=== PATIENT | male | born 1985 | race Caucasian/White ===

== ENCOUNTER 2016-04-19 11:40 | Inpatient (IN) | payer OTHER ==
[2016-04-19 14:25] VITALS: BMI 24.2
--- NOTE | 2016-04-19 15:26 | HP ---
Admission [facility] Chief Complaint: I need help to stop drinking alcohol Allergies/Adverse Reactions: Allergies Allergy/AdvReac Type Severity Reaction Status Date / Time Fish Containing Products Allergy Severe Rash Verified 04/19/16 14:30 Penicillins Allergy Severe Rash Verified 04/19/16 14:30 History of Present Illness: 30 y/o m pt with a h/o chronic alcoholism seeking detox. Exam Limitations: No Limitations - Ebola screening Have you traveled outside of the country in the last 21 days: No Have you had contact with anyone from an Ebola affected area: No Have you been sick,other than usual withdrawal symptoms: No Do you have a fever: No - Review of Systems Constitutional: Loss of Appetite, Malaise, Night Sweats, Changes in sleep, Unintentional Wgt. Loss (5 lbs. x 2 weeks) EENT: reports: No Symptoms Reported, Dental Problems (arch bars in mouth 2nd to mandibular fx), Mouth Pain Respiratory: reports: No Symptoms reported Cardiac: reports: No Symptoms Reported GI: reports: Nausea, Indigestion : reports: Frequency Musculoskeletal: reports: Muscle Pain (calves krystle) Integumentary: reports: Other (multiple tatoos / abscess on back) Neuro: reports: Headache Patient History - Patient Medical History Hx Anemia: No Hx Asthma: No Hx Chronic Obstructive Pulmonary Disease (COPD): No Hx Cancer: No Hx Cardiac Disorders: No Hx Congestive Heart Failure: No Hx Hypertension: No Hx Hypercholesterolemia: No Hx Pacemaker: No HX Cerebrovascular Accident: No Hx Seizures: No Hx Diabetes: No Hx Gastrointestinal Disorders: No Hx Liver Disease: No Hx Genitourinary Disorders: No Hx Sexually Transmitted Disorders: No Hx Renal Disease (ESRD): No Hx Thyroid Disease: No Hx Human Immunodeficiency Virus (HIV): No Hx Hepatitis C: No Hx Depression: Yes Hx Suicide Attempt: No Hx Bipolar Disorder: No Hx Schizophrenia: No - Patient Surgical History Past Surgical History: Yes Hx Orthopedic Surgery: Yes (Bilateral mandible fx 08/15) - PPD History Previous Implant?: Yes Documented Results: Negative w/o proof Implanted On Prior R Admission?: No PPD to be Administered?: Yes - Reproductive History Patient is a Female of Child Bearing Age (11 -55 yrs old): No - Smoking Cessation Smoking history: Current every day smoker Have you smoked in the past 12 months: Yes Aproximately how many cigarettes per day: 20 Cigars Per Day: 0 Hx Chewing Tobacco Use: No Initiated information on smoking cessation: Yes 'Breaking Loose' booklet given: 04/19/16 - Substance & Tx. History Hx Alcohol Use: Yes Hx Substance Use: Yes Substance Use Type: Alcohol, Marijuana Hx Substance Use Treatment: Yes - Substances Abused Alcohol Route: Oral Frequency: Daily Amount used: FIFTH OF VODKA Age of first use: 20 Date of Last Use: 04/19/16 Marijuana/Hashish Route: Smoking Frequency: 1-3 times last 30 days Amount used: 1 JOINT Age of first use: 10 Date of Last Use: 04/16/16 Family Disease History - Family Disease History Family Disease History: [place]: Mother (lung ), Brother (pancreatic ) Admission Physical Exam [facility] - Vital Signs Vital Signs: Vital Signs - 24 hr 04/19/16 14:01 Temperature 97.5 F L Pulse Rate 85 Respiratory 18 Rate Blood Pressure 101/65 30 y/o m pt aox3 in nad ambulating , cooperative with exam - Physical General Appearance: Yes: Disheveled, Anxious HEENTM: Yes: EOMI, Hearing grossly Normal, Normal Voice, ANGEL LUIS Respiratory: Yes: Within Normal Limits, Chest Non-Tender, Lungs Clear, Normal Breath Sounds, No Respiratory Distress Neck: Yes: Supple, Trachea in good position Breast: Yes: Within Normal Limits Cardiology: Yes: Regular Rhythm, Regular Rate, S1, S2 Abdominal: Yes: Non Tender, Flat, Soft, Increased Bowel Sounds Genitourinary: Yes: Frequency Back: Yes: Other (abscess on back) Musculoskeletal: Yes: Muscle Pain Extremities: Yes: Tremors 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, Fully Oriented, Alert, Normal Response Integumentary: Yes: Diaphoresis Lymphatic: Yes: Within Normal Limits - Diagnostic (1) Alcohol dependence with uncomplicated withdrawal Current Visit: Yes Status: Chronic (2) Cannabis abuse, uncomplicated Current Visit: Yes Status: Chronic (3) Nicotine dependence Current Visit: Yes Status: Acute Qualifiers: Nicotine product type: cigarettes Substance use status: uncomplicated Qualified Code(s): F17.210 - Nicotine dependence, cigarettes, uncomplicated (4) Abscess of back Current Visit: Yes Status: Acute Cleared for Admission [facility] - Detox or Rehab [facility] Level of Care: Medically Managed Detox Regimen/Protocol: Librium [facility] Breath Alcohol Content Breath Alcohol Content: 0 Urine Drug Screen - Results Urine Drug Screen Results: THC-Marijuana
[2016-04-19] MEDS ORDERED: LOPERAMIDE HCL 2 MG CAPSULE PO PRN (15:41)
[2016-04-19] MEDS ORDERED: NICOTINE POLACRILEX 4 MG GUM BC PRN (15:41)
[2016-04-19] MEDS ORDERED: guaiFENesin/D-METHORPHAN HB 10 ML UNIT-DOSE CUPS PO PRN (15:41)
[2016-04-19] MEDS ORDERED: IBUPROFEN 400 MG TABLET (FP) PO PRN (15:41)
[2016-04-19] MEDS ORDERED: MAGNESIUM HYDROX 2400MG/30ML ORAL SUSPENSION 30 ML CUP PO PRN (15:41)
[2016-04-19] MEDS ORDERED: MAGNESIUM CITRATE 300 ML BOTTLE PO PRN (15:41)
[2016-04-19] MEDS ORDERED: MAG HYDROX/AL HYDROX/SIMETH 30 ML UNIT-DOSE CUP PO PRN (15:41)
[2016-04-19] MEDS ORDERED: MENTHOL/PHENOL 1 EACH UD MM PRN (15:41)
[2016-04-19] MEDS ORDERED: chlordiazePOXIDE HCL 25 MG CAPSULE PO PRN (15:41)
[2016-04-19] MEDS ORDERED: hydrOXYzine PAMOATE 25 MG CAPSULE (FP) PO PRN (15:41)
[2016-04-19] MEDS ORDERED: diphenhydrAMINE HCL 50 MG CAPSULE PO PRN (15:41)
[2016-04-19] MEDS ORDERED: ACETAMINOPHEN 325 MG TABLET (FP) PO PRN (15:41)
[2016-04-19] MEDS ORDERED: P-EPHED 60MG/TRIPROLIDI 2.5MG TABLET PO PRN (15:41)
[2016-04-19] MEDS ORDERED: PATIENT'S OWN MEDICATION (NON-FORMULARY) (Doxycycline Monohydrate [Monodox] 100 MG) PO SCH (16:00)
[2016-04-19] MEDS: chlordiazePOXIDE HCL 25 MG CAPSULE PO SCH ×2 (16:56→22:25)
[2016-04-19] MEDS: PATIENT'S OWN MEDICATION (NON-FORMULARY) (Doxycycline Monohydrate [Monodox] 100 MG) PO SCH ×2 (18:10→18:11)
[2016-04-19 20:23] LABS: URINE APPEARANCE CLEAR; URINE BILIRUBIN NEGATIVE (NEGATIVE); URINE BLOOD NEGATIVE (NEGATIVE); URINE COLOR YELLOW; URINE GLUCOSE (UA) NEGATIVE (NEGATIVE); URINE KETONE TRACE (NEGATIVE); URINE LEUK ESTERASE NEGATIVE (NEGATIVE); URINE NITRITE NEGATIVE (NEGATIVE); URINE PROTEIN NEGATIVE (NEGATIVE); URINE UROBILINOGEN NEGATIVE E.U./dl (0.2-1.0)
[2016-04-19] MEDS: THIAMINE HCL 100 MG TABLET (FP) PO SCH (22:24)
[2016-04-20] MEDS: chlordiazePOXIDE HCL 25 MG CAPSULE PO SCH ×4 (05:51→22:30)
--- NOTE | 2016-04-20 07:43 | CONSULT ---
[facility] Psychiatric Consult - Data Date of interview: 04/20/16 Admission source: [facility] Identifying data: This is 30 years old male with no history of psychiatric hospitalizations intoxicated with Alcxohol, Cannabis and Nicotine Substance Abuse History: Smoking history: Current every day smoker. Have you smoked in the past 12 months: Yes. Aproximately how many cigarettes per day: 20. Cigars Per Day: 0. Hx Chewing Tobacco Use: No. Initiated information on smoking cessation: Yes. 'Breaking Loose' booklet given: 04/19/16. - Substance & Tx. History. Hx Alcohol Use: Yes. Hx Substance Use: Yes. Substance Use Type : Alcohol, Marijuana. Hx Substance Use Treatment: Yes. - Substances Abused. * * Alcohol. Route: Oral. Frequency: Daily. Amount used: FIFTH OF VODKA. Age of first use: 20. Date of Last Use: 04/19/16. Marijuana/Hashish. Route: Smoking. Frequency: 1-3 times last 30 days. Amount used: 1 JOINT. Age of first use: 10. Date of Last Use: 04/16/16 Medical History: Denies Psychiatric History: Denies Physical/Sexual Abuse/Trauma History: Denies Additional Comment: Observation. Detox Care Protocol Mental Status Exam - Mental Status Exam Alert and Oriented to: Person Cognitive Function: Fair Patient Appearance: Unkempt Mood: Sad, Suspicious Affect: Flat Patient Behavior: Sedated Speech Pattern: Delayed Voice Loudness: Mildly Loud, Mildly Soft/Quiet Thought Process: Circumstantial Thought Disorder: Being Controlled Hallucinations: Denies Suicidal Ideation: Denies Homicidal Ideation: Denies Insight/Judgement: Fair Sleep: Difficulty falling asleep Appetite: Fair Muscle strength/Tone: Normal Gait/Station: Shuffling Additional Comments: Observation. Detox Care Protocol Psychiatric Findings - Problem List ([place] 1, 2,3) (1) Nicotine dependence Current Visit: Yes Status: Acute Qualifiers: Nicotine product type: cigarettes Substance use status: uncomplicated Qualified Code(s): F17.210 - Nicotine dependence, cigarettes, uncomplicated (2) Alcohol dependence with uncomplicated withdrawal Current Visit: Yes Status: Chronic (3) Cannabis abuse, uncomplicated Current Visit: Yes Status: Chronic (4) Drug-induced mood disorder Current Visit: Yes Status: Suspected - Initial Treatment Plan Initial Treatment Plan: Observation. Detox Care Protocol
[2016-04-20] MEDS: PATIENT'S OWN MEDICATION (NON-FORMULARY) (Doxycycline Monohydrate [Monodox] 100 MG) PO SCH ×2 (10:03→18:21)
[2016-04-20] MEDS: NICOTINE 21 MG/24 HOURS TOPICAL PATCH TD SCH (10:03)
[2016-04-20] MEDS: PRENATAL VITAMINS W/ FOLIC ACID TABLET (FP) PO SCH (10:03)
--- NOTE | 2016-04-20 10:28 | PN ---
[facility] CIWA - CIWA Score Nausea/Vomitin-No Nausea/No Vomiting Muscle Tremors: 4-Moderate,w/Arms Extend Anxiety: 4-Mod. Anxious/Guarded Agitation: 4-Moderately Restless Paroxysmal Sweats: 1-Minimal Palms Moist Orientation: 0-Oriented Tacttile Disturbances: 3-Moderate Itch/Numb/Burn Auditory Disturbances: 0-None Visual Disturbances: 0-None Headache: 0-None Present CIWA-Ar Total Score: 16 BHS Progress Note (SOAP) Subjective: ANXIETY,SWEATS,TREMORS,INTERMITTENT SLEEP. Objective: 04/20/16 10:27 Vital Signs Temperature 96.8 F L 04/20/16 06:23 Pulse Rate 74 04/20/16 06:23 Respiratory Rate 16 04/20/16 06:23 Blood Pressure 95/70 04/20/16 06:23 O2 Sat by Pulse Oximetry (%) Laboratory Last Values Sodium 140 mmol/L (136-145) 04/20/16 05:45 Potassium 4.0 mmol/L (3.5-5.1) 04/20/16 05:45 Chloride 105 mmol/L (98-107) 04/20/16 05:45 Urine Color Yellow 04/19/16 19:30 Urine Appearance Clear 04/19/16 19:30 Urine pH 6.0 (5.0-8.0) 04/19/16 19:30 Ur Specific [place] 1.023 (1.001-1.035) 04/19/16 19:30 Urine Protein Negative (NEGATIVE) 04/19/16 19:30 Urine Glucose (UA) Negative (NEGATIVE) 04/19/16 19:30 Urine Ketones Trace (NEGATIVE) H 04/19/16 19:30 Urine Blood Negative (NEGATIVE) 04/19/16 19:30 Urine Nitrite Negative (NEGATIVE) 04/19/16 19:30 Urine Bilirubin Negative (NEGATIVE) 04/19/16 19:30 Urine Urobilinogen Negative E.U./dl (0.2-1.0) 04/19/16 19:30 Ur Leukocyte Esterase Negative (NEGATIVE) 04/19/16 19:30 Assessment: 04/20/16 10:28 WITHDRAWAL SX Plan: CONTINUE DETOX
[2016-04-20 10:33] LABS: MCHC 34.5 g/dl (32.0-35.9); MEAN CELL VOLUME 95.7 fl (80-96); MEAN PLT VOLUME 8.8 fl (7.5-11.1); PLATELET COUNT 185 K/MM3 (134-434); RDW 12.3 % (11.9-15.9)
[2016-04-20 10:38] LABS: ALBUMIN 4.5 g/dl (3.4-5.0); ALK PHOS 121 U/L (45-117); ANION GAP 5 (8-16); BILIRUBIN,TOTAL 0.5 mg/dL (0.2-1.0); CALCIUM 9.3 mg/dL (8.5-10.1); CO2 30 mmol/L (21-32); CREATININE 0.9 mg/dL (0.7-1.3); GLUCOSE,RANDOM 73 mg/dL (74-106); SGOT/AST 50 U/L (15-37); SGPT/ALT 76 U/L (12-78); TOT PROT 7.2 g/dl (6.4-8.2)
--- NOTE | 2016-04-20 16:54 | EKG ---
Test Reason : Blood Pressure : / mmHG Vent. Rate : 068 BPM Atrial Rate : 068 BPM P-R Int : 138 ms QRS Dur : 082 ms QT Int : 370 ms P-R-T Axes : 067 081 025 degrees QTc Int : 393 ms POOR DATA QUALITY, INTERPRETATION MAY BE ADVERSELY AFFECTED NORMAL SINUS RHYTHM NORMAL ECG NO PREVIOUS ECGS AVAILABLE Confirmed by GEORGE SHEFFIELD MD ([id number]) on 04/20/2016 4:54:27 PM Referred By: Confirmed By:GEORGE SHEFFIELD MD
[2016-04-20] MEDS: THIAMINE HCL 100 MG TABLET (FP) PO SCH (22:30)
[2016-04-21] MEDS: chlordiazePOXIDE HCL 25 MG CAPSULE PO SCH ×2 (05:49→10:18)
[2016-04-21] MEDS: PRENATAL VITAMINS W/ FOLIC ACID TABLET (FP) PO SCH (10:17)
[2016-04-21] MEDS: PATIENT'S OWN MEDICATION (NON-FORMULARY) (Doxycycline Monohydrate [Monodox] 100 MG) PO SCH ×2 (10:18→17:19)
[2016-04-21] MEDS: NICOTINE 21 MG/24 HOURS TOPICAL PATCH TD SCH (10:18)
--- NOTE | 2016-04-21 10:53 | PN ---
[facility] CIWA - CIWA Score Nausea/Vomitin-No Nausea/No Vomiting Muscle Tremors: 4-Moderate,w/Arms Extend Anxiety: 4-Mod. Anxious/Guarded Agitation: 4-Moderately Restless Paroxysmal Sweats: 1-Minimal Palms Moist Orientation: 0-Oriented Tacttile Disturbances: 3-Moderate Itch/Numb/Burn Auditory Disturbances: 0-None Visual Disturbances: 0-None Headache: 0-None Present CIWA-Ar Total Score: 16 BHS Progress Note (SOAP) Subjective: DECREASED ANXIETY,TREMORS. SWEATS. Objective: 04/21/16 10:52 Vital Signs Temperature 97.2 F L 04/21/16 09:59 Pulse Rate 86 04/21/16 09:59 Respiratory Rate 18 04/21/16 09:59 Blood Pressure 122/71 04/21/16 09:59 O2 Sat by Pulse Oximetry (%) Laboratory Last Values WBC 7.0 K/mm3 (4.0-10.0) 04/20/16 05:45 RBC 5.03 M/mm3 (4.00-5.60) 04/20/16 05:45 Hgb 16.6 GM/dL (11.7-16.9) 04/20/16 05:45 Hct 48.1 % (35.4-49) 04/20/16 05:45 MCV 95.7 fl (80-96) 04/20/16 05:45 MCHC 34.5 g/dl (32.0-35.9) 04/20/16 05:45 RDW 12.3 % (11.9-15.9) 04/20/16 05:45 Plt Count 185 K/MM3 (134-434) 04/20/16 05:45 MPV 8.8 fl (7.5-11.1) 04/20/16 05:45 Sodium 140 mmol/L (136-145) 04/20/16 05:45 Potassium 4.0 mmol/L (3.5-5.1) 04/20/16 05:45 Chloride 105 mmol/L (98-107) 04/20/16 05:45 Carbon Dioxide 30 mmol/L (21-32) 04/20/16 05:45 Anion Gap 5 (8-16) L 04/20/16 05:45 BUN 13 mg/dL (7-18) 04/20/16 05:45 Creatinine 0.9 mg/dL (0.7-1.3) 04/20/16 05:45 Creat Clearance w eGFR > 60 (>60) 04/20/16 05:45 Random Glucose 73 mg/dL (74-106) L 04/20/16 05:45 Calcium 9.3 mg/dL (8.5-10.1) 04/20/16 05:45 Total Bilirubin 0.5 mg/dL (0.2-1.0) 04/20/16 05:45 AST 50 U/L (15-37) H 04/20/16 05:45 ALT 76 U/L (12-78) 04/20/16 05:45 Alkaline Phosphatase 121 U/L (45-117) H 04/20/16 05:45 Total Protein 7.2 g/dl (6.4-8.2) 04/20/16 05:45 Albumin 4.5 g/dl (3.4-5.0) 04/20/16 05:45 Urine Color Yellow 04/19/16 19:30 Urine Appearance Clear 04/19/16 19:30 Urine pH 6.0 (5.0-8.0) 04/19/16 19:30 Ur Specific [place] 1.023 (1.001-1.035) 04/19/16 19:30 Urine Protein Negative (NEGATIVE) 04/19/16 19:30 Urine Glucose (UA) Negative (NEGATIVE) 04/19/16 19:30 Urine Ketones Trace (NEGATIVE) H 04/19/16 19:30 Urine Blood Negative (NEGATIVE) 04/19/16 19:30 Urine Nitrite Negative (NEGATIVE) 04/19/16 19:30 Urine Bilirubin Negative (NEGATIVE) 04/19/16 19:30 Urine Urobilinogen Negative E.U./dl (0.2-1.0) 04/19/16 19:30 Ur Leukocyte Esterase Negative (NEGATIVE) 04/19/16 19:30 RPR Titer Nonreactive (NONREACTIVE) 04/20/16 05:45 Assessment: 04/21/16 10:53 WITHDRAWAL SX Plan: CONTINUE DETOX
[2016-04-21] MEDS: chlordiazePOXIDE 5 MG CAPSULE PO SCH ×2 (17:17→22:34)
[2016-04-21] MEDS: THIAMINE HCL 100 MG TABLET (FP) PO SCH (22:34)
[2016-04-22] MEDS: chlordiazePOXIDE 5 MG CAPSULE PO SCH ×2 (05:59→10:16)
[2016-04-22] MEDS: PATIENT'S OWN MEDICATION (NON-FORMULARY) (Doxycycline Monohydrate [Monodox] 100 MG) PO SCH ×2 (10:16→17:10)
[2016-04-22] MEDS: NICOTINE 21 MG/24 HOURS TOPICAL PATCH TD SCH (10:16)
[2016-04-22] MEDS: PRENATAL VITAMINS W/ FOLIC ACID TABLET (FP) PO SCH (10:16)
--- NOTE | 2016-04-22 11:02 | PN ---
BHS Progress Note (SOAP) Subjective: mild generalized pain, restlessness Objective: 04/22/16 11:01 Vital Signs - 8 hr 04/22/16 04/22/16 04/22/16 03:30 06:28 10:56 Temperature 96.1 F L 97.6 F Pulse Rate 85 87 Respiratory 20 18 20 Rate Blood Pressure 110/74 104/72 Laboratory Last Values WBC 7.0 K/mm3 (4.0-10.0) 04/20/16 05:45 RBC 5.03 M/mm3 (4.00-5.60) 04/20/16 05:45 Hgb 16.6 GM/dL (11.7-16.9) 04/20/16 05:45 Hct 48.1 % (35.4-49) 04/20/16 05:45 MCV 95.7 fl (80-96) 04/20/16 05:45 MCHC 34.5 g/dl (32.0-35.9) 04/20/16 05:45 RDW 12.3 % (11.9-15.9) 04/20/16 05:45 Plt Count 185 K/MM3 (134-434) 04/20/16 05:45 MPV 8.8 fl (7.5-11.1) 04/20/16 05:45 Sodium 140 mmol/L (136-145) 04/20/16 05:45 Potassium 4.0 mmol/L (3.5-5.1) 04/20/16 05:45 Chloride 105 mmol/L (98-107) 04/20/16 05:45 Carbon Dioxide 30 mmol/L (21-32) 04/20/16 05:45 Anion Gap 5 (8-16) L 04/20/16 05:45 BUN 13 mg/dL (7-18) 04/20/16 05:45 Creatinine 0.9 mg/dL (0.7-1.3) 04/20/16 05:45 Creat Clearance w eGFR > 60 (>60) 04/20/16 05:45 Random Glucose 73 mg/dL (74-106) L 04/20/16 05:45 Calcium 9.3 mg/dL (8.5-10.1) 04/20/16 05:45 Total Bilirubin 0.5 mg/dL (0.2-1.0) 04/20/16 05:45 AST 50 U/L (15-37) H 04/20/16 05:45 ALT 76 U/L (12-78) 04/20/16 05:45 Alkaline Phosphatase 121 U/L (45-117) H 04/20/16 05:45 Total Protein 7.2 g/dl (6.4-8.2) 04/20/16 05:45 Albumin 4.5 g/dl (3.4-5.0) 04/20/16 05:45 Urine Color Yellow 04/19/16 19:30 Urine Appearance Clear 04/19/16 19:30 Urine pH 6.0 (5.0-8.0) 04/19/16 19:30 Ur Specific [place] 1.023 (1.001-1.035) 04/19/16 19:30 Urine Protein Negative (NEGATIVE) 04/19/16 19:30 Urine Glucose (UA) Negative (NEGATIVE) 04/19/16 19:30 Urine Ketones Trace (NEGATIVE) H 04/19/16 19:30 Urine Blood Negative (NEGATIVE) 04/19/16 19:30 Urine Nitrite Negative (NEGATIVE) 04/19/16 19:30 Urine Bilirubin Negative (NEGATIVE) 04/19/16 19:30 Urine Urobilinogen Negative E.U./dl (0.2-1.0) 04/19/16 19:30 Ur Leukocyte Esterase Negative (NEGATIVE) 04/19/16 19:30 RPR Titer Nonreactive (NONREACTIVE) 04/20/16 05:45 Labs noted Assessment: 04/22/16 11:02 withdrawal sx Plan: continue detox
[2016-04-22] MEDS: chlordiazePOXIDE HCL 10 MG CAPSULE PO SCH ×2 (17:10→22:20)
[2016-04-22] MEDS: THIAMINE HCL 100 MG TABLET (FP) PO SCH (22:20)
[2016-04-23] MEDS: chlordiazePOXIDE HCL 10 MG CAPSULE PO SCH ×2 (05:29→10:34)
[2016-04-23 06:21] VITALS: BP 105/70; PULSE 93; TEMP 96.1
--- NOTE | 2016-04-23 10:32 | DS ---
[facility] Detox Discharge Summary Admission Date: 04/19/16 Discharge Date: 04/23/16 - History Present History: Alcohol Dependence, Cannabis Dependence Pertinent Past History: No significant PMH - Physical Exam Results Vital Signs: Vital Signs Temperature 96.1 F L 04/23/16 06:21 Pulse Rate 93 H 04/23/16 06:21 Respiratory Rate 16 04/23/16 06:21 Blood Pressure 105/70 04/23/16 06:21 O2 Sat by Pulse Oximetry (%) Pertinent Admission Physical Exam Findings: Withdrawal Symptoms Laboratory Last Values WBC 7.0 K/mm3 (4.0-10.0) 04/20/16 05:45 RBC 5.03 M/mm3 (4.00-5.60) 04/20/16 05:45 Hgb 16.6 GM/dL (11.7-16.9) 04/20/16 05:45 Hct 48.1 % (35.4-49) 04/20/16 05:45 MCV 95.7 fl (80-96) 04/20/16 05:45 MCHC 34.5 g/dl (32.0-35.9) 04/20/16 05:45 RDW 12.3 % (11.9-15.9) 04/20/16 05:45 Plt Count 185 K/MM3 (134-434) 04/20/16 05:45 MPV 8.8 fl (7.5-11.1) 04/20/16 05:45 Sodium 140 mmol/L (136-145) 04/20/16 05:45 Potassium 4.0 mmol/L (3.5-5.1) 04/20/16 05:45 Chloride 105 mmol/L (98-107) 04/20/16 05:45 Carbon Dioxide 30 mmol/L (21-32) 04/20/16 05:45 Anion Gap 5 (8-16) L 04/20/16 05:45 BUN 13 mg/dL (7-18) 04/20/16 05:45 Creatinine 0.9 mg/dL (0.7-1.3) 04/20/16 05:45 Creat Clearance w eGFR > 60 (>60) 04/20/16 05:45 Random Glucose 73 mg/dL (74-106) L 04/20/16 05:45 Calcium 9.3 mg/dL (8.5-10.1) 04/20/16 05:45 Total Bilirubin 0.5 mg/dL (0.2-1.0) 04/20/16 05:45 AST 50 U/L (15-37) H 04/20/16 05:45 ALT 76 U/L (12-78) 04/20/16 05:45 Alkaline Phosphatase 121 U/L (45-117) H 04/20/16 05:45 Total Protein 7.2 g/dl (6.4-8.2) 04/20/16 05:45 Albumin 4.5 g/dl (3.4-5.0) 04/20/16 05:45 Urine Color Yellow 04/19/16 19:30 Urine Appearance Clear 04/19/16 19:30 Urine pH 6.0 (5.0-8.0) 04/19/16 19:30 Ur Specific [place] 1.023 (1.001-1.035) 04/19/16 19:30 Urine Protein Negative (NEGATIVE) 04/19/16 19:30 Urine Glucose (UA) Negative (NEGATIVE) 04/19/16 19:30 Urine Ketones Trace (NEGATIVE) H 04/19/16 19:30 Urine Blood Negative (NEGATIVE) 04/19/16 19:30 Urine Nitrite Negative (NEGATIVE) 04/19/16 19:30 Urine Bilirubin Negative (NEGATIVE) 04/19/16 19:30 Urine Urobilinogen Negative E.U./dl (0.2-1.0) 04/19/16 19:30 Ur Leukocyte Esterase Negative (NEGATIVE) 04/19/16 19:30 RPR Titer Nonreactive (NONREACTIVE) 04/20/16 05:45 Labs noted - Treatment Hospital Course: Detox Protocol Followed, Detoxed Safely, Responded well, Discharged Condition Good - Medication Discharge Medications: Ambulatory Orders Doxycycline Monohydrate [Monodox] 100 mg PO Q12H 04/19/16 - Diagnosis (1) Nicotine dependence Current Visit: Yes Status: Acute Qualifiers: Nicotine product type: cigarettes Substance use status: uncomplicated Qualified Code(s): F17.210 - Nicotine dependence, cigarettes, uncomplicated (2) Alcohol dependence with uncomplicated withdrawal Current Visit: Yes Status: Acute (3) Cannabis abuse, uncomplicated Current Visit: Yes Status: Acute (4) Drug-induced mood disorder Current Visit: Yes Status: Acute - AMA Did Patient Leave Against Medical Advice: No
[2016-04-23] MEDS: PRENATAL VITAMINS W/ FOLIC ACID TABLET (FP) PO SCH (10:34)
[2016-04-23] MEDS: NICOTINE 21 MG/24 HOURS TOPICAL PATCH TD SCH (10:34)
[2016-04-23] MEDS: PATIENT'S OWN MEDICATION (NON-FORMULARY) (Doxycycline Monohydrate [Monodox] 100 MG) PO SCH (10:34)
== END 2016-04-23 10:35 | disposition home or self-care (01) | DRG 775 ==
LOC: YASAS 11:40 → Y3N 15:45
PROVIDERS: ADMIT Internal Medicine; ATTEND Internal Medicine
PROC: HZ2ZZZZ Detoxification Services for Substance Abuse Treatment (ICD-10-PCS; principal; 2016-04-19)
DX: F10.230 Alcohol dependence with withdrawal, uncomplicated (principal); F12.10 Cannabis abuse, uncomplicated; F17.210 Nicotine dependence, cigarettes, uncomplicated; F19.24 Other psychoactive substance dependence with psychoactive substance-induced mood disorder; L02.212 Cutaneous abscess of back [any part, except buttock and flank]; Z59.0 Homelessness
CPT/HCPCS: 36415; 80053; 81003; 85027; 86593; 93005; 93010